=== PATIENT | male | born 1945 | race Caucasian/White ===

== ENCOUNTER 2017-02-09 09:40 | Emergency (ER) | payer MEDICARE ==
[2017-02-09] MEDS ORDERED: Dexamethasone 4 mg/ml Vial ONE (10:35)
[2017-02-09] MEDS ORDERED: Ketorolac Tromethamine 30 MG/ML VIAL ONE (10:35)
== END 2017-02-09 11:36 | disposition home or self-care (01) ==
LOC: ERS 09:40
DX: M54.42 Lumbago with sciatica, left side (principal); E78.5 Hyperlipidemia, unspecified; I10 Essential (primary) hypertension; F17.210 Nicotine dependence, cigarettes, uncomplicated
CPT/HCPCS: 96372; J1100; J1885

== ENCOUNTER 2017-03-18 10:12 | Day surgery (SDC) | payer MEDICARE ==
[2017-03-17 10:12] VITALS: BMI 29.4
[2017-03-18] MEDS ORDERED: Fentanyl 100 MCG/2 ML VIAL ONE (11:42)
[2017-03-18] MEDS ORDERED: Midazolam HCl 2 mg/2 ml Vial ONE (11:44)
--- NOTE | 2017-03-18 14:32 | MRI ---
MRI LUMBAR SPINE WITH AND WITHOUT CONTRAST: Date: 03/18/17 Multiplanar, multisequential imaging of lumbar spine obtained. Postcontrast images obtained after adm inistered 17 mL of MultiHance IV. HISTORY: Low back pain. Lumbar surgery approximately 1.5 years ago. Radiculopathy to left leg. COMPARISON: MRI lumbar spine dated 05/20/16. FINDINGS: Lumbar vertebra maintain height and alignment. Moderate degenerative changes are noted with anterior and lateral osteophytes on the lumbar vertebra which appear similar to the prior exam. There is loss of disc space at all levels of the lumbar spine which appears stable from the prior study. There is m ild end plate edema at the L3-4 level; however, the degree of edema involving the L3 and L4 vertebra is significantly less than on the prior MRI of 05/20/16 which was performed shortly after the patient 's lumbar surgery. At T12-L1, there is no significant disc bulge or protrusion. No central canal or foraminal stenosis. At L1-2, broad based disc bulge is seen combined with mild facet arthrosis resulting in mild central canal stenosis. At L2-3, broad based disc bulge is more prominent, flattening the thecal sac. Facet hypertrophy. Mild central canal stenosis. Postop laminectomy change. At L3-4, there is diffuse disc bulge with facet hypertrophy. Mild to moderate central canal stenosis. Postop laminectomy changes. Bilateral foraminal stenosis at L3-4 secondary to diffuse disc bulge and disc osteophyte complex exte nding into both foramina and associated facet hypertrophy. At L4-5, there is diffuse disc bulge. Facet hypertrophy. Mild central canal stenosis. Bilateral deny inal stenosis, more severe on the right due to disc bulge and hypertrophic change. At L5-S1, mild disc bulge and slight posterior listhesis abuts the anterior thecal sac. Bilateral for aminal stenosis is seen secondary to hypertrophic change. IMPRESSION: There are multilevel degenerative disc changes at all levels of the lumbar spine with postoperative c hanges also noted. Moderate central canal stenosis at L3-4 with bilateral foraminal stenosis at this level. Mild central canal stenosis at L4-5 with bilateral foraminal stenosis is described above. Fora maryanne stenosis is seen at L5-S1 as described above. POS: [facility]
[2017-03-18] MEDS ORDERED: Gadobenate Dimeglumine 529 MG/1 ML (20ML VIAL) ONE (16:43)
== END 2017-03-18 14:33 | disposition home or self-care (01) ==
LOC: SDC/OP 10:12 → EDSTATUS 12:00 → SDC/OP 14:33
PROVIDERS: ATTEND Family Medicine
DX: M48.061 Spinal stenosis, lumbar region without neurogenic claudication (principal); M25.552 Pain in left hip; I10 Essential (primary) hypertension; E78.5 Hyperlipidemia, unspecified; F17.210 Nicotine dependence, cigarettes, uncomplicated; Z79.891 Long term (current) use of opiate analgesic; Z98.890 Other specified postprocedural states; Z79.899 Other long term (current) drug therapy
CPT/HCPCS: 72158; A9579; J2250; J3010

== ENCOUNTER 2017-07-07 08:45 | Outpatient (CLI) | payer MEDICARE ==
[2017-07-07 10:34] LABS: Bilirubin Negative (Negative); Blood, Urine Negative (Negative); Clarity CLEAR (Clear); Glucose, Urine (Dipstick) Negative (Negative); Leukocyte Negative (Negative); Nitrite Negative (Negative); Protein, Urine (Dipstick) Negative (Neg-Trace); Specific Gravity, Urine 1.008 (1.002-1.036); Urobilinogen 0.2 mg/dL (0.2-1.0); pH, Urine 6.5 (5.0-9.0)
[2017-07-07 10:40] LABS: Bacteria/HPF None Seen HPF (None Seen); Hyaline Casts/LPF 0-3 HYALINE CAST LPF (0-3 Hyaline); RBC/HPF 0-3 HPF (0-3); Squamous Epithelial None Seen HPF (0-3); WBC/HPF None Seen HPF (0-3)
== END 2017-07-07 08:46 | disposition home or self-care (01) ==
LOC: LABBT 08:45
PROVIDERS: ATTEND Orthopaedic Surgery
DX: Z01.818 Encounter for other preprocedural examination (principal); M17.11 Unilateral primary osteoarthritis, right knee
CPT/HCPCS: 81001; 87081; 93005; 93010

== ENCOUNTER 2017-07-20 08:30 | Outpatient (CLI) | payer MEDICARE ==
[2017-07-20 09:02] LABS: INR-International Normal Ratio 0.9; Prothrombin Time 12.5 SEC (12.0-14.7)
[2017-07-20 09:12] LABS: #Basophils 0.1 thou/uL (0.0-0.2); #Eosinphils 0.4 thou/uL (0.0-0.7); #Lymphocytes 2.5 thou/uL (1.20-3.40); #Monocytes 0.5 thou/uL (0.11-0.59); #Neutrophils 5.6 thou/uL (1.40-6.50); %Basophils 0.6 % (0.0-1.0); %Eosinophils 4.5 % (0.0-10.0); %Lymphocytes 27.3 % (21.0-51.0); %Monocytes 5.8 % (0.0-10.0); %Neutrophils 61.8 % (42.0-75.0); Hemoglobin 13.4 g/dL (14.0-18.0); Mean Corpuscular HGB CONC 33.9 g/dL (32.0-36.0); Mean Corpuscular Hemoglobin 32.3 pg (27.0-31.0); Mean Corpuscular Volume 95.3 fl (80.0-94.0); Mean Platelet Volume 7.2 fL (7.4-10.4); Platelet Count 210 thou/uL (130-400); RBC Distribution Width 12.7 % (11.5-14.5); Red Blood Cell (RBC) Count 4.16 mill/uL (4.70-6.10); White Blood Cell (WBC) Count 9.1 thou/uL (4.8-10.8)
[2017-07-20 09:14] LABS: Anion Gap 13 mmol/L (10-20); BUN (Urea Nitrogen) 8 mg/dL (8.4-25.7); Calc. Creatinine Clearance 0 mL/min (70-130); Calcium 9.3 mg/dL (7.8-10.44); Carbon Dioxide 24 mmol/L (23-31); Chloride 104 mmol/L (98-107); Estimated GFR-MDRD 76; Glucose 151 mg/dL (83-110); Potassium 4.3 mmol/L (3.5-5.1); Sodium 137 mmol/L (136-145)
== END 2017-07-20 08:31 | disposition home or self-care (01) ==
LOC: LABBT 08:30
PROVIDERS: ATTEND Orthopaedic Surgery
DX: Z01.818 Encounter for other preprocedural examination (principal); M17.11 Unilateral primary osteoarthritis, right knee
CPT/HCPCS: 80048; 85025; 85610; 86850; 86900; 86901

== ENCOUNTER 2017-07-21 13:14 | Outpatient (CLI) | payer MEDICARE | END 2017-07-21 13:15 | disposition home or self-care (01) | LOC: LABBT 13:14 | PROVIDERS: ATTEND Orthopaedic Surgery | DX: Z01.812 Encounter for preprocedural laboratory examination (principal); M17.11 Unilateral primary osteoarthritis, right knee | CPT/HCPCS: 86850; 86900; 86901 ==

== ENCOUNTER 2017-07-25 05:32 | Inpatient (IN) | payer MEDICARE ==
[2017-07-07 09:01] VITALS: BMI 31.0
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
[2017-07-25] MEDS ORDERED: Sodium Chloride 0.9% 100 ML ONE (05:56)
[2017-07-25] MEDS ORDERED: CEFAZOLIN/Water 2 GM/20 ML SYRINGE ONE (05:56)
[2017-07-25] MEDS ORDERED: Vancomycin HCl 1.5 GM in Sodium Chloride 0.9% 250 ML 300 ML IVPB SCH ×2 (06:00→20:00)
[2017-07-25] MEDS ORDERED: Midazolam HCl 2 mg/2 ml Vial ONE (06:18)
[2017-07-25] MEDS ORDERED: Bupivacaine 0.25% HCL 30 ML VIAL ONE (06:18)
[2017-07-25] MEDS ORDERED: Fentanyl 100 MCG/2 ML VIAL ONE ×3 (06:18→09:49)
[2017-07-25] MEDS ORDERED: Ropivacaine 0.5% HCl/PF (150 MG/30 ML VIAL) ONE (06:19)
[2017-07-25] MEDS ORDERED: Bupivacaine/Epinephrine 0.25% 30 ML VIAL ONE (06:33)
[2017-07-25] MEDS ORDERED: Ondansetron HCl/PF 4 MG/2 ML Vial IVP PRN ×4 (07:07→11:32)
[2017-07-25] MEDS ORDERED: Zolpidem Tartrate 5 MG TAB PO PRN ×2 (07:07→11:32)
[2017-07-25] MEDS ORDERED: traMADol HCl 50 MG TAB PO PRN ×3 (07:07→11:32)
[2017-07-25] MEDS ORDERED: Promethazine HCl 25 MG/ML VIAL IM PRN ×3 (07:07→09:05)
[2017-07-25] MEDS ORDERED: Fentanyl 100 MCG/2 ML VIAL IV PRN (07:07)
[2017-07-25] MEDS ORDERED: Promethazine HCl 25 MG/ML VIAL SLOW IVP PRN ×3 (07:42→11:32)
[2017-07-25] MEDS ORDERED: ePHEDrine/0.9% NaCl/PF SYRINGE 50 mg/10 ml ONE (07:57)
[2017-07-25] MEDS ORDERED: Albuterol Sulfate HFA (OR ONLY) ONE (08:28)
[2017-07-25] MEDS ORDERED: Tranexamic Acid 1,000 MG in Sodium Chloride 0.9% 100 ML IVPB SCH ×2 (09:00→11:32)
--- NOTE | 2017-07-25 09:36 | OP ---
DATE OF SURGERY: 07/25/2017 SURGEON: Lalit Mishra M.D. SOFTWARE DEVELOPER INTERN: MIL Kumar. ANESTHESIA: General plus femoral site nerve blocks. PREOPERATIVE DIAGNOSIS: Degenerative arthritis, right knee. POSTOPERATIVE DIAGNOSIS: Degenerative arthritis, right knee. PROCEDURES PERFORMED: Right total knee replacement with cemented [employer] components with c omputer-assisted navigation (#5 femoral component, #6 universal tibial baseplate with 11 mm CS plasti c insert, and A35 all plastic patellar component). NARRATIVE REPORT: After satisfactory anesthesia was induced in supine position, sequential compressi on device was placed on the non-operative leg throughout the procedure. The right leg was then prepp ed and draped in routine sterile fashion. Right leg was elevated, exsanguinated, Esmarch bandage and tourniquet inflated to 300 mmHg. A gently curved medial parapatellar incision was made and carried down to the subcutaneous tissues, and bleeding points controlled with Bovie cautery. Medial parapate llar arthrotomy was performed. Patella was dislocated laterally and portions of the fat pad were exc ised for exposure. There was marked degenerative arthritis of the knee, especially medially, with la rge areas of exposed bone. Meniscal remnants and osteophytes were removed. Using the [employer] s navigation system and the appropriate guides, the distal femoral and proximal tibial articular surf aces were excised with an oscillating saw to accept the trial components. It was felt that a #5 femo ral component and #6 tibial baseplate with 11 mm CS plastic insert gave appropriate size, fit, stabil ity, and correction of the preoperative deformity. The patellar articular surface was excised to acc ept an all plastic A35 patellar component. There was good patellar tracking. The trial components r emoved. The knee was copiously irrigated with pulsatile lavage and bony surfaces thoroughly cleaned and dried. The permanent component was then cemented in a single stage using 1 package of cement pre mixed with 1 gram of tobramycin powder. Excess cement was removed. There was again good fit and sta bility of the components. The skin was then infiltrated with 30 mL of 0.25% Marcaine with epinephrin e. The medial retinaculum and quadriceps mechanism was closed with interrupted #3-0 Vicryl and a run jhonatan #2 Quill. Subcutaneous tissues were closed with running 0 Quill suture. The skin was closed wi th running subcuticular 3-0 Monoderm and SurgiSeal skin adhesive. Sterile bulky compressive dressing was applied and the tourniquet deflated after 69 minutes. The foot promptly pinked up and a sequent ial compression device was placed on the operated leg. He was awakened and taken to recovery room in stable condition. There were no apparent intraoperative complications. The estimated loss was less than 100 mL.
--- NOTE | 2017-07-25 10:09 | RAD ---
TWO VIEW RIGHT KNEE: Date: 07-25-17 History: Post total knee replacement. Comparison: None available. FINDINGS: Post-surgical changes related to right total knee prosthesis are noted. Subcutaneous edema and emphys maria ines are seen about the knee related to recent post-surgical change. No fracture or dislocation is see n involving the right knee. Vascular calcification is seen posterior to the knee. IMPRESSION: Post-surgical change related to right total knee prosthesis. There is sclerotic and linear lucencies overlying the femoral condyles on the lateral view which is not seen on the frontal projection, this is probably post-surgical in origin. POS: [facility]
[2017-07-25] MEDS ORDERED: Non-Formulary Item 1 EACH (Potassium [Potassium] 99 MG) PO PRN (11:32)
[2017-07-25] MEDS ORDERED: Acetaminophen 325 MG TAB PO PRN (11:32)
[2017-07-25] MEDS ORDERED: diphenhydrAMINE 25 MG CAP PO PRN (11:32)
[2017-07-25] MEDS ORDERED: HYDROcodone/Acetaminophen 10/325 mg Tablet PO PRN ×2 (11:32)
[2017-07-25] MEDS ORDERED: Fentanyl 100 MCG/2 ML VIAL SLOW IVP PRN ×2 (11:32)
[2017-07-25] MEDS ORDERED: Ketorolac Tromethamine 30 MG/ML VIAL IVP SCH (12:00)
[2017-07-25] MEDS: Multivitamin W/ Minerals 1 TAB PO SCH (12:07)
[2017-07-25] MEDS: HYDROcodone/Acetaminophen 10/325 mg Tablet PO PRN ×4 (13:19→22:46)
[2017-07-25] MEDS: Cyclobenzaprine 10 MG TAB PO SCH ×2 (13:19→20:07)
[2017-07-25] MEDS: Ketorolac Tromethamine 30 MG/ML VIAL IVP SCH ×2 (14:19→21:47)
[2017-07-25] MEDS: Sodium Chloride 0.9% 1,000 ML IV SCH ×2 (14:20→21:05)
[2017-07-25] MEDS: CEFAZOLIN/Water 2 GM/20 ML SYRINGE SLOW IVP SCH ×2 (14:35→21:48)
[2017-07-25] MEDS: Aspirin 81 mg Enteric Coated Tablet PO SCH ×3 (15:01→20:08)
--- NOTE | 2017-07-25 15:52 | PDOC.FPRHP ---
- History of Present Illness Chief Complaint: knee pain History of Present Illness: 72 yo CM with h/o R knee degenerative arthritis s/p R total knee replacement this morning with Dr. Mishra. Patient also with history of hypertension. [facility] service has been consulted for medical management. PCP is Dr. Aponte. Currently , patient has no complaints other than moderate post-surgical discomfort; current pain level 4/10 with ambulation. - Allergies/Adverse Reactions Allergies Allergy/AdvReac Type Severity Reaction Status Date / Time No Known Allergies Allergy Verified 07/07/17 09:01 - Home Medications Medication Instructions Recorded Confirmed Type Amlodipine Besylate [amLODIPine 10 mg PO HS 06/24/15 07/07/17 History Besylate] Lisinopril 40 mg PO HS 06/24/15 07/07/17 History Metoprolol Succinate [Toprol XL] 100 mg PO HS 11/03/15 07/07/17 History Atorvastatin Calcium [Atorvastatin 20 mg PO HS 03/17/17 07/07/17 History Calcium] Cyclobenzaprine [Flexeril] 10 mg PO TID 03/17/17 07/07/17 History Gabapentin [Gabapentin] 300 mg PO BID 03/17/17 07/07/17 History Tamsulosin HCl [Flomax] 0.4 mg PO HS 03/17/17 07/07/17 History Acetaminophen W/ Codeine [Tylenol 1 tab PO TID 07/07/17 07/07/17 History #3] Gabapentin 2 tab PO HS 07/07/17 07/07/17 History Ibuprofen 400 mg PO TID PRN 07/07/17 07/07/17 History Potassium 99 mg PO DAILY PRN 07/07/17 07/07/17 History - History PMHx: 1) R knee degenerative arthritis 2) HTN 3) HLD 4) H/o L1 disc herniation 5) Chronic back pain PSHx: 1) Ventral & inguinal hernia repairs 2) Laminectomy (2016) 3) Vasectomy FHx: 1) HTN (multiple family members) 2) T2DM (father) Social: Smokes 1 PPD x 56 yrs. Has ~3 alcoholic drinks per day. Denies drug use. - Review of Systems General: reports: fever/chills, weight/appetite/sleep changes Eyes: denies: eye pain, vision changes ENT: denies: nasal congestion, rhinorrhea Respiratory: denies: cough, congestion Cardiovascular: denies: chest pain, palpitation Gastrointestinal: denies: nausea, vomiting, abdominal pain Genitourinary: denies: dysuria, polyuria Skin: denies: rashes, lesions Musculoskeletal: reports: pain, tenderness, swelling Neurological: denies: numbness, weakness - Vital signs BP: 145/75 HR: 70 RR: 16 Tmax: 97.8 Pox: 95% on RA Wt: 95.2 kg - Physical Exam Constitutional: NAD, awake, alert and oriented, well developed HEENT: normocephalic and atraumatic, PERRLA, EOMI Neck: supple, no thyromegaly Heart: RRR, normal S1/S2, no murmurs/rubs/gallops, pulses present Lungs: CTAB, no respiratory distress Abdomen: soft, non-tender, bowel sounds present, no masses/distention Musculoskeletal: other (R knee in KAYLIN wrap) Neurological: no focal deficit, CN II-XII intact Skin: no rash/lesions, capillary refill <2 seconds Psychiatric: normal mood and affect, good judgment and insight FMR H&P: A/P - Problem List (1) Hypertension Current Visit: Yes Status: Chronic Code(s): I10 - ESSENTIAL (PRIMARY) HYPERTENSION Qualifiers: Hypertension type: essential hypertension Qualified Code(s): I10 - Essential (primary) hypertension (2) Degenerative arthritis of right knee Current Visit: Yes Status: Chronic Code(s): M17.11 - UNILATERAL PRIMARY OSTEOARTHRITIS, RIGHT KNEE (3) S/P TKR (total knee replacement) using cement Current Visit: Yes Status: Acute Code(s): Z96.659 - PRESENCE OF UNSPECIFIED ARTIFICIAL KNEE JOINT (4) Hyperlipidemia Current Visit: Yes Status: Chronic Code(s): E78.5 - HYPERLIPIDEMIA, UNSPECIFIED (5) Chronic back pain greater than 3 months duration Current Visit: Yes Status: Chronic Code(s): M54.9 - DORSALGIA, UNSPECIFIED; G89.29 - OTHER CHRONIC PAIN - Plan 72 yo CM with: 1) Degenerative arthritis R knee s/p TKR: post-op day #0; postsurgical mgmt per ortho team. PT has been ordered. 2) Essential hypertension: home medications have been restarted; BP currently in acceptable ranges. Will continue to monitor. 3) Hyperlipidemia: continue statin. 4) Chronic back pain w/ sciatica: currently improved per patient; receives chronic pain management with Dr. Quiroz. 5) Alcohol abuse: ASE protocol. 6) Tobacco abuse: cessation counseling. Thank you for allowing us to participate in the care of this patient. We will continue to follow. Disposition/LOS: Anticipate discharge home tomorrow or Tuesday.
[2017-07-25] MEDS: Bupivacaine 0.5% 50 ML in Sodium Chloride 0.9% 50 ML NERVE BLCK SCH (20:11)
[2017-07-25] MEDS ORDERED: Gabapentin 300 MG CAP PO SCH ×2 (21:00)
[2017-07-25] MEDS ORDERED: Tamsulosin HCl 0.4 MG CAP PO SCH (21:00)
[2017-07-25] MEDS ORDERED: Atorvastatin Calcium 20 MG TAB PO SCH (21:00)
[2017-07-25] MEDS ORDERED: Amlodipine 10 MG TAB PO SCH (21:00)
[2017-07-26] MEDS: HYDROcodone/Acetaminophen 10/325 mg Tablet PO PRN ×3 (03:47→12:37)
[2017-07-26 04:29] LABS: Hemoglobin 10.9 g/dL (14.0-18.0); Mean Corpuscular HGB CONC 33.3 g/dL (32.0-36.0); Mean Corpuscular Hemoglobin 31.9 pg (27.0-31.0); Mean Corpuscular Volume 95.8 fl (80.0-94.0); Mean Platelet Volume 7.7 fL (7.4-10.4); Platelet Count 170 thou/uL (130-400); Red Blood Cell (RBC) Count 3.43 mill/uL (4.70-6.10); White Blood Cell (WBC) Count 7.7 thou/uL (4.8-10.8)
[2017-07-26] MEDS: Ketorolac Tromethamine 30 MG/ML VIAL IVP SCH ×2 (06:04→15:08)
[2017-07-26] MEDS: Sodium Chloride 0.9% 1,000 ML IV SCH (07:18)
--- NOTE | 2017-07-26 07:47 | PDOC.FM ---
- Subjective Subjective: Feeling well this morning. Pain is well-controlled and he is participating in PT. No concerns or complaints at this time. - Objective MAR Reviewed: Yes Vital Signs & Weight: Vital Signs (12 hours) Temp Pulse Resp BP BP Pulse Ox 07/26/17 04:30 99.7 F H 74 18 114/57 L 92 L 07/26/17 00:04 97.1 F L 75 18 166/80 H 92 L 07/25/17 20:08 75 163/78 H 07/25/17 20:00 97.1 F L 75 18 168/78 H 96 Weight Weight 95.254 kg Result Diagrams: 07/26/17 03:37 <Mini Marroquin - Last Filed: 07/26/17 11:56> - Objective Vital Signs & Weight: Vital Signs (12 hours) Temp Pulse Resp BP Pulse Ox 07/26/17 16:00 98.4 F 74 18 139/67 92 L Weight Admit Weight 95.254 kg Weight 95.254 kg I&O: 07/25/17 07/26/17 07/27/17 06:59 06:59 06:59 Intake Total 980 Balance 980 Result Diagrams: 07/26/17 03:37 <Khai Meraz - Last Filed: 07/26/17 21:36> Phys Exam - Physical Examination Constitutional: NAD HEENT: moist MMs, oral pharynx no lesions Neck: supple wheezing in SURAJ and LLL Cardiovascular: RRR Gastrointestinal: soft, non-tender Musculoskeletal: no edema R knee with bandage and minimal erythema Neurological: moves all 4 limbs Psychiatric: normal affect, A&O x 3 Skin: normal turgor <Mini Marroquin - Last Filed: 07/26/17 11:56> Dx/Plan (1) S/P TKR (total knee replacement) using cement Code(s): Z96.659 - PRESENCE OF UNSPECIFIED ARTIFICIAL KNEE JOINT Status: Acute (2) Degenerative arthritis of right knee Code(s): M17.11 - UNILATERAL PRIMARY OSTEOARTHRITIS, RIGHT KNEE Status: Chronic (3) Hyperlipidemia Code(s): E78.5 - HYPERLIPIDEMIA, UNSPECIFIED Status: Chronic (4) Hypertension Code(s): I10 - ESSENTIAL (PRIMARY) HYPERTENSION Status: Chronic QualifierTitle: Hypertension type: essential hypertension Qualified Code( s): I10 - Essential (primary) hypertension (5) Lumbar stenosis Code(s): M48.06 - SPINAL STENOSIS, LUMBAR REGION * DO NOT USE * Status: Acute - Plan Plan: 72 yo M with: 1) Degenerative arthritis R knee s/p TKR: post-op day #1: postsurgical mgmt per ortho team. Continue with PT 2) Essential hypertension: home medications have been restarted: BP currently in acceptable ranges this morning (slightly elevated overnight). Will continue to monitor. 3) Hyperlipidemia: continue statin. 4) Chronic back pain w/ sciatica: receives chronic pain management with Dr. Quiroz. 5) Alcohol abuse: ASE protocol. 6) Tobacco abuse: discussed cessation. He is precontemplative stage at this time. Dispo and d/c per primary ortho team. <Mini Marroquin - Last Filed: 07/26/17 11:56> Attending Addendum - Attending Addendum Date/Time: 07/26/17 [id number] I personally evaluated the patient and discussed the management with Dr. Marroquin I agree with the History, Examination, Assessment and Plan documented above with any addition or exceptions noted below. <Khai Meraz - Last Filed: 07/26/17 21:36>
[2017-07-26] MEDS: Gabapentin 300 MG CAP PO SCH ×2 (08:26→11:37)
[2017-07-26] MEDS: Cyclobenzaprine 10 MG TAB PO SCH ×2 (08:26→15:09)
[2017-07-26] MEDS: Aspirin 81 mg Enteric Coated Tablet PO SCH (08:26)
[2017-07-26] MEDS: Multivitamin W/ Minerals 1 TAB PO SCH (08:27)
[2017-07-26] MEDS ORDERED: Senokot S 8.6-50 MG TAB PO SCH (09:00)
[2017-07-26] MEDS ORDERED: Ferrous Gluconate 324 MG TAB PO SCH (09:00)
[2017-07-26] MEDS: Bupivacaine 0.5% 50 ML in Sodium Chloride 0.9% 50 ML NERVE BLCK SCH (09:50)
[2017-07-26] MEDS ORDERED: Ropivacaine 0.2% 550 ML 550 ML NERVE BLCK SCH (15:07)
[2017-07-26 16:16] VITALS: BP 139/67; TEMP 98.4
[2017-07-26] MEDS ORDERED: Lisinopril 20 MG TAB PO SCH (21:00)
== END 2017-07-26 16:00 | disposition home or self-care (01) | DRG 470 ==
LOC: SDC 05:32 → SJJU 11:46
PROVIDERS: ADMIT Orthopaedic Surgery; ATTEND Orthopaedic Surgery
PROC: 0SRC0J9 Replacement of Right Knee Joint with Synthetic Substitute, Cemented, Open Approach (ICD-10-PCS; principal; 2017-07-25)
DX: M17.11 Unilateral primary osteoarthritis, right knee (principal); E78.5 Hyperlipidemia, unspecified; I10 Essential (primary) hypertension; F10.10 Alcohol abuse, uncomplicated; M54.30 Sciatica, unspecified side; G89.29 Other chronic pain; M48.061 Spinal stenosis, lumbar region without neurogenic claudication; F17.210 Nicotine dependence, cigarettes, uncomplicated
CPT/HCPCS: 36415; 85027; 96374; A4306; C1713; C1776; G8978-GP-CL; G8979-GP-CJ; J1885; J2250; J2795; J3010; J3370; J3490; J7050; J7620; S0020

== ENCOUNTER 2018-01-05 15:21 | Emergency (ER) | payer MEDICARE ==
[2018-01-05 16:13] LABS: #Eosinphils 0.1 thou/uL (0.0-0.7); #Lymphocytes 1.4 thou/uL (1.20-3.40); #Monocytes 0.4 thou/uL (0.11-0.59); #Neutrophils 4.2 thou/uL (1.40-6.50); %Basophils 0.8 % (0.0-1.0); %Eosinophils 1.7 % (0.0-10.0); %Lymphocytes 23.2 % (21.0-51.0); %Monocytes 6.2 % (0.0-10.0); %Neutrophils 68.1 % (42.0-75.0); Mean Corpuscular HGB CONC 34.1 g/dL (32.0-36.0); Mean Corpuscular Hemoglobin 31.8 pg (27.0-31.0); Mean Corpuscular Volume 93.2 fL (78.0-98.0); Mean Platelet Volume 7.3 fL (7.4-10.4); Platelet Count 257 thou/uL (130-400); RBC Distribution Width 11.8 % (11.5-14.5); Red Blood Cell (RBC) Count 4.41 mill/uL (4.70-6.10); White Blood Cell (WBC) Count 6.2 thou/uL (4.8-10.8)
[2018-01-05 16:37] LABS: ALT (SGPT) 16 U/L (8-55); AST (SGOT) 22 U/L (5-34); Albumin 4.1 g/dL (3.4-4.8); Alkaline Phosphatase 121 U/L (40-150); Anion Gap 13 mmol/L (10-20); BUN (Urea Nitrogen) 10 mg/dL (8.4-25.7); Bilirubin, Total 0.4 mg/dL (0.2-1.2); Calc. Creatinine Clearance 0 mL/min (70-130); Calcium 9.3 mg/dL (7.8-10.44); Carbon Dioxide 24 mmol/L (23-31); Chloride 100 mmol/L (98-107); Estimated GFR-MDRD 66; Globulin 2.9 g/dL (2.4-3.5); Glucose 152 mg/dL (83-110); Sodium 133 mmol/L (136-145)
[2018-01-05 16:41] LABS: CKMB 1.7 ng/mL (0-6.6); Troponin I Less than 0.010 ng/mL (< 0.028)
[2018-01-05 18:10] LABS: Bilirubin Negative (Negative); Blood, Urine Negative (Negative); Clarity CLEAR (Clear); Glucose, Urine (Dipstick) Negative (Negative); Leukocyte Negative (Negative); Nitrite Negative (Negative); Protein, Urine (Dipstick) Negative (Neg-Trace); Specific Gravity, Urine 1.016 (1.002-1.036)
--- NOTE | 2018-01-05 18:49 | CT ---
CT BRAIN WITHOUT CONTRAST: 01/05/18 HISTORY: Dizziness, vertigo. FINDINGS: No evidence infarct, hemorrhage, midline shift or abnormal extra-axial fluid collections are seen. Th e ventricular size is appropriate and the basilar cisterns patent. 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 The bony calvarium is intact. The visualized paranasal sinuses and mastoid air cell s are well aerated. IMPRESSION: No CT evidence of acute intracranial process. POS: [facility]
== END 2018-01-05 18:17 | disposition home or self-care (01) ==
LOC: ERS 15:21
DX: R42 Dizziness and giddiness (principal); E78.5 Hyperlipidemia, unspecified; I10 Essential (primary) hypertension; F17.210 Nicotine dependence, cigarettes, uncomplicated; Z79.899 Other long term (current) drug therapy
CPT/HCPCS: 36415; 70450; 80053; 81003; 82553; 84484; 85025; 93005

== ENCOUNTER 2018-11-10 08:15 | Outpatient (CLI) | payer MEDICARE ==
--- NOTE | 2018-11-10 11:37 | MRI ---
MRI BRAIN WITHOUT CONTRAST: 11/10/2018 HISTORY: Vertigo. COMPARISON: None. TECHNIQUE: Multiplanar, multisequence MR imaging of the brain obtained without contrast. FINDINGS: The diffusion-weighted imaging demonstrates no evidence for acute infarction. The axial gradient echo imaging demonstrates no evidence for acute hemorrhage. A small focus of blooming artifact is noted w ithin the posterolateral left cerebellar hemisphere and within the posterolateral left occipital lobe , suggesting remote microhemorrhage or areas of punctate calcification. There are a few small foci of increased T2 and FLAIR signal within the periventricular and deep white matter, suggesting mild small vessel disease. There is a focal area of T2 and FLAIR hyperintensity w ithin the dorsal aspect of the caudate head on the left suggesting prior insult. There is mild diffus e cerebral volume loss. No midline shift or mass effect. Arterial flow voids at the axial level of the skull base appear grossly unremarkable on the T2 weight ed imaging. Regional bone marrow signal intensity appears within normal limits. IMPRESSION: Chronic findings, as detailed above. No evidence for acute infarction, mass effect or ventricular enl argement. POS: [facility]
== END 2018-11-10 08:16 | disposition home or self-care (01) ==
LOC: SCSMRI 08:15
PROVIDERS: ATTEND Family Medicine
DX: R42 Dizziness and giddiness (principal)
CPT/HCPCS: 70551

== ENCOUNTER 2020-08-15 10:30 | Outpatient (CLI) | payer MEDICARE ==
[2020-08-15 13:02] LABS: #Eosinphils 0.2 10x3/uL (0.0-0.5); #Monocytes 0.4 10x3/uL (0.0-1.1); #Neutrophils 3.9 10x3/uL (1.5-8.4); %Basophils 0.5 % (0.0-2.0); %Eosinophils 3.4 % (0.0-6.0); %Lymphocytes 23.1 % (18.0-47.0); %Neutrophils 65.8 % (40.0-75.0); Hemoglobin 13.2 g/dL (13.5-17.5); Mean Corpuscular HGB CONC 34.2 g/dL (32.0-36.0); Mean Corpuscular Hemoglobin 31.8 pg (27.0-33.0); Mean Platelet Volume 10.1 fl (7.4-10.4); Platelet Count 211 10x3/uL (150-450); RBC Distribution Width 13.6 % (11.5-14.5); Red Blood Cell (RBC) Count 4.15 10x6/uL (4.32-5.72); White Blood Cell (WBC) Count 5.9 10x3/uL (3.5-10.5)
[2020-08-15 13:15] LABS: Anion Gap 14 mmol/L (10-20); BUN (Urea Nitrogen) 16 mg/dL (8.4-25.7); Calc. Creatinine Clearance 0 mL/min (70-130); Calcium 9.2 mg/dL (7.8-10.44); Carbon Dioxide 26 mmol/L (23-31); Chloride 90 mmol/L (98-107); Glucose 106 mg/dL (83-110); Potassium 4.2 mmol/L (3.5-5.1); Sodium 126 mmol/L (136-145)
== END 2020-08-15 10:31 | disposition home or self-care (01) ==
LOC: LABBT 10:30
PROVIDERS: ATTEND Internal Medicine Cardiovascular Disease
DX: Z01.818 Encounter for other preprocedural examination (principal); I48.91 Unspecified atrial fibrillation
CPT/HCPCS: 80048; 85025; 93005; 93010

== ENCOUNTER 2022-05-24 14:40 | Outpatient (CLI) | payer OTHER | END 2022-05-24 14:41 | disposition home or self-care (01) | LOC: ULT 14:40 | PROVIDERS: ATTEND Psychiatry & Neurology Neurology | DX: R07.9 Chest pain, unspecified (principal) | CPT/HCPCS: 93306 ==

== ENCOUNTER 2022-05-25 07:54 | Outpatient (CLI) | payer OTHER | END 2022-05-25 07:55 | disposition home or self-care (01) | LOC: TBSIIMAG 07:54 | PROVIDERS: ATTEND Psychiatry & Neurology Neurology | DX: I63.9 Cerebral infarction, unspecified (principal) | CPT/HCPCS: 70551 ==

== ENCOUNTER 2022-05-25 12:12 | Outpatient (CLI) | payer OTHER ==
[2022-05-25] MEDS ORDERED: Iopamidol 370 76% 100 ML VIAL ONE (14:52)
== END 2022-05-25 12:13 | disposition home or self-care (01) ==
LOC: CT 12:12
PROVIDERS: ATTEND Psychiatry & Neurology Neurology
DX: I63.9 Cerebral infarction, unspecified (principal); I67.2 Cerebral atherosclerosis
CPT/HCPCS: 70496; 70498

== ENCOUNTER 2022-10-19 10:43 | Inpatient (IN) | payer MEDICARE, OTHER ==
[2022-10-19] MEDS ORDERED: Albuterol 2.5 MG/0.5 ML NEB ONE (11:07)
[2022-10-19] MEDS ORDERED: Ipratropium Bromide 2.5 ml Neb ONE ×2 (11:07→15:06)
[2022-10-19] MEDS ORDERED: methylPREDNISolone Sod Succ/PF 125 MG/2 ML VIAL ONE (11:31)
[2022-10-19 11:36] LABS: #Eosinphils 0.2 thou/uL (0.0-0.7); #Monocytes 0.5 thou/uL (0.11-0.59); #Neutrophils 2.4 thou/uL (1.40-6.50); %Basophils 0.4 % (0.0-1.0); %Eosinophils 4.9 % (0.0-10.0); %Neutrophils 51.3 % (42.0-75.0); Hematocrit 37.7 % (42.0-52.0); Hemoglobin 12.5 g/dL (14.0-18.0); Mean Corpuscular HGB CONC 33.2 g/dL (32.0-36.0); Mean Corpuscular Hemoglobin 31.7 pg (27.0-31.0); Mean Corpuscular Volume 95.7 fl (78.0-98.0); Platelet Count 159 10x3/uL (130-400); Red Blood Cell (RBC) Count 3.94 mill/uL (4.70-6.10); White Blood Cell (WBC) Count 4.7 10x3/uL (4.8-10.8)
[2022-10-19 12:03] LABS: ALT (SGPT) 8 U/L (8-55); AST (SGOT) 19 U/L (5-34); Alkaline Phosphatase 107 U/L (40-110); Anion Gap 13 mmol/L (10-20); BUN (Urea Nitrogen) 12 mg/dL (8.4-25.7); Bilirubin, Total 0.3 mg/dL (0.2-1.2); Calc. Creatinine Clearance 0 mL/min (70-130); Calcium 8.8 mg/dL (7.8-10.44); Carbon Dioxide 26 mmol/L (23-31); Chloride 97 mmol/L (98-107); Estimated GFR 59; Globulin 2.7 g/dL (2.4-3.5); Glucose 81 mg/dL (83-110); Lipase 111 U/L (8-78); Magnesium 1.9 mg/dL (1.6-2.6); Potassium 4.7 mmol/L (3.5-5.1); Protein, Total 6.7 g/dL (5.8-8.1); Sodium 131 mmol/L (136-145)
[2022-10-19 12:05] LABS: Troponin I Less than 0.010 ng/mL (< 0.028)
[2022-10-19] MEDS ORDERED: cefTRIAXone (ROCEPHIN) 2 GM VIAL ONE (12:30)
[2022-10-19] MEDS ORDERED: Cyclobenzaprine 10 MG TAB PO PRN (12:35)
[2022-10-19] MEDS ORDERED: Senokot S 8.6-50 MG TAB PO PRN (12:35)
[2022-10-19] MEDS ORDERED: Calcium Carbonate 500 MG ChewTAB PO PRN (12:35)
[2022-10-19] MEDS ORDERED: Ondansetron PF 4 MG/2 ML Vial IVP PRN (12:35)
[2022-10-19] MEDS ORDERED: Benzonatate 100 MG CAP PO PRN (12:59)
[2022-10-19] MEDS ORDERED: Azithromycin 500 MG VIAL ONE (13:00)
[2022-10-19] MEDS ORDERED: HumaLOG 300 UNITS/3 ML VIAL SC PRN ×2 (13:40)
[2022-10-19] MEDS ORDERED: Dextrose 50% Abboject 50 ML SYRINGE SLOW IVP PRN (13:40)
[2022-10-19] MEDS ORDERED: Glucagon 1 MG/ML KIT IM PRN (13:40)
[2022-10-19] MEDS ORDERED: Dextrose 5% in Water 1,000 ML IV PRN (13:40)
[2022-10-19] MEDS: Sodium Chloride 0.9% 1,000 ML IV SCH (14:39)
[2022-10-19] MEDS: Ipratropium Bromide 2.5 ml Neb NEB SCH ×2 (15:12→19:53)
[2022-10-19] MEDS: Dronedarone HCl 400 MG TAB PO SCH (17:39)
[2022-10-19 19:40] LABS: SARS-CoV-2 NAA Rapid Test Not Detected (NotDetected)
[2022-10-19] MEDS ORDERED: Apixaban 5 MG TAB PO SCH (21:00)
[2022-10-19] MEDS: guaiFENesin ER 600 MG TAB PO SCH (22:07)
[2022-10-19] MEDS: Tamsulosin HCl 0.4 MG CAP PO SCH (22:08)
[2022-10-19] MEDS: Atorvastatin Calcium 20 MG TAB PO SCH (22:08)
[2022-10-19] MEDS: Pregabalin 75 MG CAP PO SCH (22:09)
[2022-10-19] MEDS: methylPREDNISolone Sod Succ 40 MG VIAL IVP SCH (22:23)
[2022-10-20] MEDS: Sodium Chloride 0.9% 1,000 ML IV SCH (00:52)
[2022-10-20] MEDS: Ipratropium Bromide 2.5 ml Neb NEB SCH ×3 (01:01→13:20)
[2022-10-20] MEDS: Acetaminophen 325 MG TAB PO PRN ×2 (06:27→18:28)
[2022-10-20 06:59] LABS: #Monocytes 0.2 thou/uL (0.11-0.59); #Neutrophils 5.1 thou/uL (1.40-6.50); %Monocytes 2.6 % (0.0-10.0); %Neutrophils 83.6 % (42.0-75.0); Hemoglobin 13.5 g/dL (14.0-18.0); Mean Corpuscular HGB CONC 32.9 g/dL (32.0-36.0); Mean Corpuscular Hemoglobin 31.4 pg (27.0-31.0); Mean Corpuscular Volume 95.3 fl (78.0-98.0); Mean Platelet Volume 10.5 fL (7.4-10.4); Platelet Count 157 10x3/uL (130-400); White Blood Cell (WBC) Count 6.1 10x3/uL (4.8-10.8)
[2022-10-20 07:27] LABS: ALT (SGPT) 8 U/L (8-55); AST (SGOT) 20 U/L (5-34); Albumin 4.2 g/dL (3.4-4.8); Alkaline Phosphatase 102 U/L (40-110); Anion Gap 12 mmol/L (10-20); BUN (Urea Nitrogen) 14 mg/dL (8.4-25.7); Bilirubin, Total 0.3 mg/dL (0.2-1.2); Calc. Creatinine Clearance 78 mL/min (70-130); Carbon Dioxide 27 mmol/L (23-31); Chloride 99 mmol/L (98-107); Estimated GFR 65; Globulin 2.8 g/dL (2.4-3.5); Glucose 140 mg/dL (83-110); Potassium 5.4 mmol/L (3.5-5.1); Sodium 133 mmol/L (136-145)
[2022-10-20] MEDS ORDERED: LOKELMA 10 GM PACKET PO SCH (08:00)
[2022-10-20] MEDS: Pregabalin 75 MG CAP PO SCH ×2 (08:37→21:53)
[2022-10-20] MEDS: methylPREDNISolone Sod Succ 40 MG VIAL IVP SCH ×3 (08:38→22:08)
[2022-10-20] MEDS: Multivit, Therapeutic 1 TAB PO SCH (08:38)
[2022-10-20] MEDS: metFORMIN 500 MG TAB PO SCH (08:38)
[2022-10-20] MEDS: Aspirin 81 mg Enteric Coated Tablet PO SCH (08:38)
[2022-10-20] MEDS: Dronedarone HCl 400 MG TAB PO SCH ×2 (08:38→16:17)
[2022-10-20] MEDS: guaiFENesin ER 600 MG TAB PO SCH ×2 (08:38→21:54)
[2022-10-20] MEDS: Azithromycin 500 MG in Sodium Chloride 0.9% 250 ML 250 ML IVPB SCH (08:51)
[2022-10-20] MEDS ORDERED: cefTRIAXone\\ROCEPHIN 1 GM in Sodium Chloride 0.9% 100 ML IVPB SCH (12:00)
[2022-10-20 12:45] LABS: Anion Gap 10 mmol/L (10-20); BUN (Urea Nitrogen) 16 mg/dL (8.4-25.7); Calc. Creatinine Clearance 86 mL/min (70-130); Calcium 8.8 mg/dL (7.8-10.44); Carbon Dioxide 26 mmol/L (23-31); Chloride 99 mmol/L (98-107); Estimated GFR 74; Glucose 130 mg/dL (83-110); Potassium 5.4 mmol/L (3.5-5.1); Sodium 130 mmol/L (136-145)
[2022-10-20] MEDS ORDERED: Furosemide 40 MG TAB PO SCH (15:30)
[2022-10-20] MEDS: Nicotine 21 MG PATCH TD SCH (16:17)
[2022-10-20] MEDS ORDERED: hydrALAZINE 20 MG/ML VIAL SLOW IVP PRN (16:54)
[2022-10-20] MEDS ORDERED: NIFEdipine XL 30 MG TAB PO SCH (17:00)
[2022-10-20 17:40] VITALS: BMI 32.8
[2022-10-20] MEDS ORDERED: Loperamide HCl 2 MG CAP PO PRN (18:20)
[2022-10-20] MEDS: Tamsulosin HCl 0.4 MG CAP PO SCH (21:54)
[2022-10-20] MEDS: Atorvastatin Calcium 20 MG TAB PO SCH (21:54)
[2022-10-21] MEDS: methylPREDNISolone Sod Succ 40 MG VIAL IVP SCH (04:30)
[2022-10-21 06:59] LABS: #Monocytes 0.6 thou/uL (0.11-0.59); #Neutrophils 6.3 thou/uL (1.40-6.50); %Basophils 0.1 % (0.0-1.0); %Lymphocytes 18.5 % (21.0-51.0); %Monocytes 6.7 % (0.0-10.0); %Neutrophils 74.3 % (42.0-75.0); Hematocrit 39.2 % (42.0-52.0); Hemoglobin 12.8 g/dL (14.0-18.0); Mean Corpuscular HGB CONC 32.7 g/dL (32.0-36.0); Mean Corpuscular Hemoglobin 31.4 pg (27.0-31.0); Mean Corpuscular Volume 96.1 fl (78.0-98.0); Mean Platelet Volume 10.7 fL (7.4-10.4); Platelet Count 173 10x3/uL (130-400); RBC Distribution Width 14.1 % (11.5-14.5); Red Blood Cell (RBC) Count 4.08 mill/uL (4.70-6.10); White Blood Cell (WBC) Count 8.5 10x3/uL (4.8-10.8)
[2022-10-21 07:21] LABS: Anion Gap 11 mmol/L (10-20); BUN (Urea Nitrogen) 19 mg/dL (8.4-25.7); Calc. Creatinine Clearance 81 mL/min (70-130); Calcium 9.6 mg/dL (7.8-10.44); Carbon Dioxide 31 mmol/L (23-31); Chloride 95 mmol/L (98-107); Estimated GFR 69; Glucose 102 mg/dL (83-110); Potassium 4.5 mmol/L (3.5-5.1); Sodium 132 mmol/L (136-145)
[2022-10-21] MEDS ORDERED: Furosemide 40 MG TAB PO SCH (07:30)
[2022-10-21] MEDS ORDERED: NIFEdipine XL 30 MG TAB PO SCH (09:00)
[2022-10-21] MEDS: guaiFENesin ER 600 MG TAB PO SCH (09:18)
[2022-10-21] MEDS: Multivit, Therapeutic 1 TAB PO SCH (09:19)
[2022-10-21] MEDS: metFORMIN 500 MG TAB PO SCH (09:19)
[2022-10-21] MEDS: Aspirin 81 mg Enteric Coated Tablet PO SCH (09:19)
[2022-10-21] MEDS: Dronedarone HCl 400 MG TAB PO SCH (09:19)
[2022-10-21] MEDS: Pregabalin 75 MG CAP PO SCH (09:19)
[2022-10-21] MEDS: Nicotine 21 MG PATCH TD SCH (09:22)
[2022-10-21] MEDS: Azithromycin 500 MG in Sodium Chloride 0.9% 250 ML 250 ML IVPB SCH (09:26)
[2022-10-21 11:35] VITALS: BP 177/76; TEMP 97.8
== END 2022-10-21 11:01 | disposition home or self-care (01) | DRG 177 ==
LOC: ERS 10:43 → SUATTDRO 10:43 → T4-B 12:42 → OBSVTOIN 10-20 09:35
PROVIDERS: ADMIT Internal Medicine; ATTEND Internal Medicine
DX: J15.6 Pneumonia due to other Gram-negative bacteria (principal); J96.01 Acute respiratory failure with hypoxia; J44.1 Chronic obstructive pulmonary disease with (acute) exacerbation; E87.1 Hypo-osmolality and hyponatremia; I13.0 Hypertensive heart and chronic kidney disease with heart failure and stage 1 through stage 4 chronic kidney disease, or unspecified chronic kidney disease; J98.11 Atelectasis; N18.9 Chronic kidney disease, unspecified; E11.22 Type 2 diabetes mellitus with diabetic chronic kidney disease; E78.5 Hyperlipidemia, unspecified; E11.42 Type 2 diabetes mellitus with diabetic polyneuropathy; N40.0 Benign prostatic hyperplasia without lower urinary tract symptoms; F32.A Depression, unspecified; F17.210 Nicotine dependence, cigarettes, uncomplicated; E87.5 Hyperkalemia; I48.0 Paroxysmal atrial fibrillation; E66.9 Obesity, unspecified; D53.9 Nutritional anemia, unspecified; Z20.822 Contact with and (suspected) exposure to COVID-19; Z79.82 Long term (current) use of aspirin; Z79.899 Other long term (current) drug therapy; Z79.01 Long term (current) use of anticoagulants; Z68.32 Body mass index [BMI] 32.0-32.9, adult; Z79.84 Long term (current) use of oral hypoglycemic drugs
CPT/HCPCS: 36415; 36416; 71045; 80048; 80053; 83690; 83735; 83880; 84145; 84484; 85025; 85379; 87040; 93005; 94640; 96365; 96367; 96375; J0360; J0456; J0696; J1815; J2920; J2930; J3490; J7050; J7611; U0002

== ENCOUNTER 2024-03-21 17:37 | Inpatient (IN) | payer MEDICARE, OTHER ==
[2024-03-21] MEDS ORDERED: Glucagon 1 MG/ML KIT IM PRN (19:22)
[2024-03-21] MEDS ORDERED: Dextrose 5% in Water 1,000 ML IV PRN (19:22)
[2024-03-21] MEDS ORDERED: Insulin Lispro 100 UNIT/ML 10 ML VIAL SC PRN ×2 (19:22)
[2024-03-21] MEDS ORDERED: Dextrose 50% Abboject 50 ML SYRINGE SLOW IVP PRN (19:22)
[2024-03-21 19:43] VITALS: BMI 34.4
[2024-03-21] MEDS ORDERED: Ipratropium/Albuterol 3 ML NEB NEB PRN (20:11)
[2024-03-21] MEDS: Lactated Ringer's 1,000 ML IV SCH (21:18)
[2024-03-21] MEDS: Atorvastatin Calcium 40 MG TAB PO SCH (21:23)
[2024-03-21] MEDS: Cyproheptadine 4 MG TAB PO SCH (21:23)
[2024-03-21] MEDS: Melatonin 3 MG TAB PO SCH (21:24)
[2024-03-21] MEDS: Enoxaparin 120 MG/0.8 ML SYRINGE SC SCH (21:24)
[2024-03-21] MEDS: Famotidine 20 MG TAB PO SCH (21:24)
[2024-03-21] MEDS: Pregabalin 75 MG CAP PO SCH (21:25)
[2024-03-21] MEDS: Nicotine 21 MG PATCH TD SCH (21:41)
[2024-03-21] MEDS: Diclofenac 1% 50 GM TOPICAL GEL TP SCH (21:41)
[2024-03-21] MEDS: Ipratropium/Albuterol 3 ML NEB NEB SCH (23:40)
[2024-03-21 23:43] LABS: Phosphorus 3.3 mg/dL (2.5-4.5)
[2024-03-22 04:08] LABS: #Basophils Less than 0.03 10x3/uL (0.0-0.2); #Eosinophils Less than 0.03 10x3/uL (0.0-0.7); %Lymphocytes 14.7 % (21.0-51.0); %Monocytes 3.1 % (0.0-10.0); %Neutrophils 81.5 % (42.0-75.0); Hematocrit 33.5 % (42.0-52.0); Hemoglobin 10.9 g/dL (14.0-18.0); Mean Corpuscular HGB CONC 32.5 g/dL (32.0-36.0); Mean Corpuscular Hemoglobin 31.9 pg (27.0-31.0); Mean Platelet Volume 10.7 fL (7.4-10.4); Platelet Count 143 10x3/uL (130-400); RBC Distribution Width 15.6 % (11.5-14.5); Red Blood Cell (RBC) Count 3.42 mill/uL (4.70-6.10)
[2024-03-22 06:30] LABS: Anion Gap 13 mmol/L (10-20); BUN (Urea Nitrogen) 12 mg/dL (8.4-25.7); Calc. Creatinine Clearance 88 mL/min (70-130); Calcium 8.8 mg/dL (7.8-10.44); Carbon Dioxide 26 mmol/L (23-31); Chloride 98 mmol/L (98-107); Estimated GFR 71; Glucose 167 mg/dL (83-110); Potassium 4.9 mmol/L (3.5-5.1); Sodium 132 mmol/L (136-145)
[2024-03-22] MEDS ORDERED: predniSONE 5 MG TAB PO SCH (08:00)
[2024-03-22] MEDS ORDERED: Enoxaparin 40 MG (0.4 mL) SYRINGE SC SCH (09:00)
[2024-03-22] MEDS: Mirtazapine 30 MG TAB PO SCH (09:01)
[2024-03-22] MEDS: Dronedarone HCl 400 MG TAB PO SCH ×2 (09:01→16:49)
[2024-03-22] MEDS: Aspirin 81 mg Enteric Coated Tablet PO SCH (09:01)
[2024-03-22] MEDS: Amlodipine 10 MG TAB PO SCH (09:02)
[2024-03-22] MEDS: Cholecalciferol 1,000 UNITS (25 MCG) TAB PO SCH (09:02)
[2024-03-22] MEDS: Escitalopram Oxalate 10 mg Tablet PO SCH (09:02)
[2024-03-22] MEDS: Furosemide 40 MG TAB PO SCH (09:02)
[2024-03-22] MEDS: Losartan 25 MG TAB PO SCH (09:02)
[2024-03-22] MEDS: Tamsulosin HCl 0.4 MG CAP PO SCH (09:02)
[2024-03-22] MEDS: Acetaminophen 325 MG TAB PO PRN (09:02)
[2024-03-22] MEDS: predniSONE 50 MG TAB PO SCH (09:02)
[2024-03-22] MEDS ORDERED: Ipratropium/Albuterol 3 ML NEB NEB PRN (09:20)
[2024-03-22] MEDS: Benzonatate 100 MG CAP PO PRN (11:07)
[2024-03-22] MEDS: Furosemide 20 MG TAB PO SCH (14:03)
[2024-03-22] MEDS ORDERED: Ipratropium/Albuterol 3 ML NEB NEB SCH (15:00)
[2024-03-22 15:48] VITALS: BP 162/87; TEMP 98.1
[2024-03-22] MEDS ORDERED: Apixaban 5 MG TAB PO SCH (21:00)
[2024-03-23] MEDS ORDERED: predniSONE 20 MG TAB PO SCH (08:00)
[2024-03-23] MEDS ORDERED: Lidocaine 4% Patch TD SCH (09:00)
[2024-03-23] MEDS ORDERED: Transdermal Patch Removal TOP SCH (21:00)
== END 2024-03-22 17:30 | disposition home or self-care (01) | DRG 189 ==
LOC: 2NO 18:23
PROVIDERS: ADMIT Internal Medicine; ATTEND Internal Medicine
DX: J96.01 Acute respiratory failure with hypoxia (principal); J44.1 Chronic obstructive pulmonary disease with (acute) exacerbation; N17.9 Acute kidney failure, unspecified; I48.91 Unspecified atrial fibrillation; M25.562 Pain in left knee; F17.210 Nicotine dependence, cigarettes, uncomplicated; M19.90 Unspecified osteoarthritis, unspecified site; N40.0 Benign prostatic hyperplasia without lower urinary tract symptoms; E11.22 Type 2 diabetes mellitus with diabetic chronic kidney disease; F32.A Depression, unspecified; D53.1 Other megaloblastic anemias, not elsewhere classified; Z79.82 Long term (current) use of aspirin; Z79.899 Other long term (current) drug therapy; Z98.890 Other specified postprocedural states; N18.2 Chronic kidney disease, stage 2 (mild)
CPT/HCPCS: 36415; 36416; 80048; 83735; 84100; 84443; 85025; 94640; J1650; J7120; J7512; J7620